=== PATIENT | male | born 1940 | race Caucasian/White ===

== ENCOUNTER 2017-02-09 18:09 | Inpatient (IN) | payer MEDICARE, BC ==
[~2017-02-09] VITALS: Ht 175.3 cm; Wt 102.1 kg
[~2017-02-09 18:09] MED LIST: CARDIZEM120 MG PO; DILTIAZEM ER360 M1 PO; HYTRIN10 MG PO; METOPROLOL TART50 MG ORAL; PRADAXA150 MG ORAL
[2017-02-09 18:25] VITALS: BP 140/73
--- NOTE | 2017-02-09 18:41 | Emergency Room Report ---
History of Present Illness General Chief Complaint: Chest Pain Source: Patient, Medical Record Present Illness HPI Patient presents with complaints of chest pain Last night he felt some mild palpitation sensation that resolved however about an hour prior to arrival she had a sensation of pain and heaviness left lower mid chest area 5 out of 10 pain heaviness Was concerned and came to the emergency room denies any chest pain currently Denies any headache or neck pain Denies any abdominal pain denies any vomiting or diarrhea Denies any change with position or exertion Patient has history of chronic A. fib questionable previous thrombus Allergies: Coded Allergies: No Known Allergies (Verified , 10/13/06) Patient History Past Medical History: see triage record Pertinent Family History: none Reviewed Nursing Documentation: PMH: Agreed, PSxH: Agreed Nursing Documentation-PMH Past Medical History: No History, Except For Hx Cardiac Problems: Yes - A-fib Hx Hypertension: Yes Hx Pacemaker: No - GOUT Hx Asthma: No Hx COPD: No Hx Diabetes: Yes - type 2 Hx Cancer: No Hx Gastrointestinal Problems: No Hx Dialysis: No Hx Neurological Problems: No - Sleep Apnea Hx Cerebrovascular Accident: No Hx Seizures: No Review of Systems All Other Systems: negative except mentioned in HPI Physical Exam Vital Signs Date Time Temp Pulse Resp B/P Pulse Ox O2 Delivery O2 Flow Rate FiO2 02/09/ 18:18 98.1 80 16 140/73 98 Room Air Sp02 EP Interpretation: reviewed, normal General Appearance: well appearing, no apparent distress Head: normocephalic, atraumatic Eyes: bilateral eye EOMI, bilateral eye PERRL ENT: hearing grossly normal, normal pharynx, TMs + canals normal, uvula midline Neck: full range of motion, supple, no meningismus, no bony tend Respiratory: lungs clear, normal breath sounds, no rhonchi, no respiratory distress, no retraction, no accessory muscle use Cardiovascular #1: no edema, no gallop, no JVD, no murmur, irregularly irregular Gastrointestinal: normal bowel sounds, non tender, soft, no mass, no organomegaly, non-distended, no guarding, no hernia, no pulsatile mass, no rebound Genitourinary: no CVA tenderness Musculoskeletal: other - Patient has evidence of trigger finger on the right hand with previous surgery Neurologic: oriented x3, responsive, sensory intact, other Psychiatric: mood/affect normal Skin: normal color, no rash, warm/dry, palpation normal Lymphatic: normal inspection, no adenopathy Medical Decision Making Diagnostic Impression: Primary Impression: ACS (acute coronary syndrome) ER Course Patient is a fairly complex patient with multiple differential to consideration including but not limited to cardiac cardiopulmonary and vascular emergencies Patient for set of enzymes are negative at this time patient remains pain-free in consultation with the patient's sailing officer he will be observed for further rule out ACS pathology And placed into observation Labs Test 02/09/17 18:40 White Blood Count 8.0 K/UL (4.8-10.8) Red Blood Count 4.90 M/UL (4.70-6.10) Hemoglobin 15.4 G/DL (14.2-18.0) Hematocrit 43.5 % (42.0-52.0) Mean Corpuscular Volume 89 FL (80-99) Mean Corpuscular Hemoglobin 31.5 PG (27.0-31.0) Mean Corpuscular Hemoglobin Concent 35.4 G/DL (32.0-36.0) Red Cell Distribution Width 12.5 % (11.6-14.8) Platelet Count 156 K/UL (150-450) Mean Platelet Volume 9.1 FL (6.5-10.1) Neutrophils (%) (Auto) 59.0 % (45.0-75.0) Lymphocytes (%) (Auto) 30.8 % (20.0-45.0) Monocytes (%) (Auto) 6.3 % (1.0-10.0) Eosinophils (%) (Auto) 3.1 % (0.0-3.0) Basophils (%) (Auto) 0.8 % (0.0-2.0) Prothrombin Time 11.2 SEC (9.30-11.50) Prothromb Time International Ratio 1.1 (0.9-1.1) Activated Partial Thromboplast Time 35 SEC (23-33) Sodium Level 140 mEQ/L (135-145) Potassium Level 3.6 mEQ/L (3.4-4.9) Chloride Level 98 mEQ/L (98-107) Carbon Dioxide Level 25 mEQ/L (20-30) Anion Gap 17 (5-15) Blood Urea Nitrogen 23 mg/dL (7-23) Creatinine 1.1 mg/dL (0.7-1.2) Estimat Glomerular Filtration Rate mL/min (>60) Glucose Level 189 mg/dL (74-106) Calcium Level 9.1 mg/dL (8.6-10.2) Total Bilirubin 0.6 mg/dL (0.0-1.2) Aspartate Amino Transf (AST/SGOT) 15 U/L (5-40) Alanine Aminotransferase (ALT/SGPT) 19 U/L (3-41) Alkaline Phosphatase 105 U/L (40-129) Total Creatine Kinase 78 U/L (38-174) Troponin I < 0.30 ng/mL (<=0.30) Total Protein 6.7 g/dL (6.6-8.7) Albumin 3.8 g/dL (3.5-5.2) Globulin 2.9 g/dL Albumin/Globulin Ratio 1.3 (1.0-2.7) Lipase 14 U/L (< 60) EKG Diagnostic Results Rate: normal Rhythm: other - irregularly irregular ST Segments: other - prolonged qrs Rhythm Strip Diag. Results EP Interpretation: yes Rate: 66 Rhythm: other - a fib Chest X-Ray Diagnostic Results EP Interpretation: Yes Findings: no consolidation, no effusion, no pneumothorax, other - cm Last Vital Signs Date Time Temp Pulse Resp B/P Pulse Ox O2 Delivery O2 Flow Rate FiO2 02/09/17 18:25 64 16 Room Air 02/09/17 18:25 140/73 98 02/09/17 18:18 98.1 Status: improved Disposition: PLACE IN OBSERVATION Condition: Serious PHOEBE SANDS D.O. Feb 09, 2017 18:41
[2017-02-09 18:51] LABS: BASOPHILS % (AUTO) 0.8 % (0.0-2.0); EOSINOPHILS % (AUTO) 3.1 % (0.0-3.0); LYMPHOCYTES % (AUTO) 30.8 % (20.0-45.0); MEAN CORPUSCULAR HEMOGLOBIN 31.5 PG (27.0-31.0); MEAN CORPUSCULAR HGB CONC 35.4 G/DL (32.0-36.0); MEAN CORPUSCULAR VOLUME 89 FL (80-99); MEAN PLATELET VOLUME 9.1 FL (6.5-10.1); MONOCYTES % (AUTO) 6.3 % (1.0-10.0); PLATELET COUNT 156 K/UL (150-450); RED CELL DISTRIBUTION WIDTH 12.5 % (11.6-14.8)
[2017-02-09 19:07] LABS: INR 1.1 (0.9-1.1); PROTHROMBIN TIME 11.2 SEC (9.30-11.50)
[2017-02-09 19:12] LABS: ALANINE AMINOTRANSFERASE 19 U/L (3-41); ALBUMIN/GLOBULIN RATIO 1.3 (1.0-2.7); ANION GAP 17 (5-15); ASPARTATE AMINO TRANSFERASE 15 U/L (5-40); CALCIUM 9.1 mg/dL (8.6-10.2); CARBON DIOXIDE 25 mEQ/L (20-30); CHLORIDE 98 mEQ/L (98-107); CREATININE 1.1 mg/dL (0.7-1.2); HEMOLYSIS 9; LIPASE 14 U/L (< 60); POTASSIUM 3.6 mEQ/L (3.4-4.9); SODIUM 140 mEQ/L (135-145); TOTAL PROTEIN 6.7 g/dL (6.6-8.7)
[2017-02-09 19:19] LABS: TROPONIN I < 0.30 ng/mL (<=0.30)
[2017-02-09 19:43] LABS: CKMB 1.7 ng/mL (< 6.7)
[2017-02-09 20:24] VITALS: BP 118/68
[2017-02-09] MEDS ORDERED: Zolpidem 5mg tab ORAL PRN (22:30)
[2017-02-09] MEDS ORDERED: Nitroglycerin Subl 0.4mg tab (Bottle Of 25) SL PRN (22:30)
[2017-02-09 23:27] VITALS: BP 151/86
[2017-02-10 04:04] VITALS: BP 127/85
[2017-02-10 04:49] LABS: TROPONIN I < 0.30 ng/mL (<=0.30)
[2017-02-10 07:46] VITALS: BP 137/92
--- NOTE | 2017-02-10 08:27 | General Progress Note ---
Progress Note Progress Note [id number] full note dictated WILMAR WALLIS Feb 10, 2017 08:27
[2017-02-10 08:46] VITALS: BP 137/92
[2017-02-10] MEDS ORDERED: Metoprolol 50mg tab ORAL SCH (09:00)
[2017-02-10] MEDS ORDERED: Dabigatran 150mg cap ORAL SCH (09:00)
[2017-02-10] MEDS ORDERED: Diltiazem CD 180mg cap ORAL SCH (09:00)
[2017-02-10] MEDS ORDERED: Docusate 100mg tablet ORAL SCH (09:00)
--- NOTE | 2017-02-10 09:22 | Cardiology Progress Note ---
Assessment/Plan Assessment/Plan The patient is seen and examined, full consult note will be dictated shortly. Objective Last 24 Hour Vital Signs Date Time Temp Pulse Resp B/P Pulse Ox O2 Delivery O2 Flow Rate FiO2 02/10/17 08:46 77 137/92 02/10/17 08:46 77 137/92 02/10/17 08:00 67 02/10/17 07:46 97.5 77 20 137/92 95 Room Air 02/10/17 04:34 54 02/10/17 04:04 97.7 60 20 127/85 96 02/10/17 00:00 50 02/09/17 23:27 97.3 57 20 151/86 96 Room Air 02/09/17 21:14 98.1 58 17 118/68 98 Room Air 02/09/17 20:24 58 17 118/68 98 Room Air 02/09/17 18:25 64 16 Room Air 02/09/17 18:25 16 140/73 98 Room Air 02/09/17 18:18 98.1 80 16 140/73 98 Room Air Intake and Output 02/09/17 02/10/17 19:00 07:00 Intake Total 0 ml 120 ml Balance 0 ml 120 ml Intake Oral 0 ml 120 ml # Voids 3 Laboratory Tests Test 02/09/17 18:40 02/10/17 04:00 White Blood Count 8.0 K/UL (4.8-10.8) Red Blood Count 4.90 M/UL (4.70-6.10) Hemoglobin 15.4 G/DL (14.2-18.0) Hematocrit 43.5 % (42.0-52.0) Mean Corpuscular Volume 89 FL (80-99) Mean Corpuscular Hemoglobin 31.5 PG (27.0-31.0) H Mean Corpuscular Hemoglobin Concent 35.4 G/DL (32.0-36.0) Red Cell Distribution Width 12.5 % (11.6-14.8) Platelet Count 156 K/UL (150-450) Mean Platelet Volume 9.1 FL (6.5-10.1) Neutrophils (%) (Auto) 59.0 % (45.0-75.0) Lymphocytes (%) (Auto) 30.8 % (20.0-45.0) Monocytes (%) (Auto) 6.3 % (1.0-10.0) Eosinophils (%) (Auto) 3.1 % (0.0-3.0) H Basophils (%) (Auto) 0.8 % (0.0-2.0) Prothrombin Time 11.2 SEC (9.30-11.50) Prothromb Time International Ratio 1.1 (0.9-1.1) Activated Partial Thromboplast Time 35 SEC (23-33) H Sodium Level 140 mEQ/L (135-145) Potassium Level 3.6 mEQ/L (3.4-4.9) Chloride Level 98 mEQ/L (98-107) Carbon Dioxide Level 25 mEQ/L (20-30) Anion Gap 17 (5-15) H Blood Urea Nitrogen 23 mg/dL (7-23) Creatinine 1.1 mg/dL (0.7-1.2) Estimat Glomerular Filtration Rate mL/min (>60) Glucose Level 189 mg/dL (74-106) H Calcium Level 9.1 mg/dL (8.6-10.2) Total Bilirubin 0.6 mg/dL (0.0-1.2) Aspartate Amino Transf (AST/SGOT) 15 U/L (5-40) Alanine Aminotransferase (ALT/SGPT) 19 U/L (3-41) Alkaline Phosphatase 105 U/L (40-129) Total Creatine Kinase 78 U/L (38-174) Creatine Kinase MB 1.7 ng/mL (< 6.7) Creatine Kinase MB Relative Index 2.1 Troponin I < 0.30 ng/mL (<=0.30) < 0.30 ng/mL (<=0.30) Pro-B-Type Natriuretic Peptide 545 pg/mL (0-125) H Total Protein 6.7 g/dL (6.6-8.7) Albumin 3.8 g/dL (3.5-5.2) Globulin 2.9 g/dL Albumin/Globulin Ratio 1.3 (1.0-2.7) Lipase 14 U/L (< 60) GERRY SAMUEL Feb 10, 2017 09:22
--- NOTE | 2017-02-10 09:41 | Discharge Instructions ---
Discharge Instructions Discharge Instructions Resume Normal Activity?: Yes For Congestive Heart Failure Reminder Report to your physician any weight gain of 5 pounds or more in one week. GERRY SAMUEL Feb 10, 2017 09:41
--- NOTE | 2017-02-10 11:09 | Diagnostic Imaging Report ---
Indication: Chest pain Technique: One view of the chest Comparison: 05/15/2015 Findings: Suboptimal inspiration. Heart is borderline enlarged. Lungs and pleural spaces are clear. Impression: Borderline cardiomegaly. No acute process This agrees with the preliminary interpretation provided by the emergency room physician
--- NOTE | 2017-02-10 13:39 | Cardiology Report ---
APPROVED REPORT EKG Measurement Heart [id number] Atrial fibrillation with slow ventricular response Septal infarct, age undetermined Abnormal ECG
--- NOTE | 2017-02-10 13:43 | Cardiology Report ---
APPROVED REPORT EKG Measurement Heart [id number] Atrial fibrillation Septal infarct, age undetermined Abnormal ECG
--- NOTE | 2017-02-10 20:38 | History and Physical Report ---
DATE OF ADMISSION: 02/09/2017 PRIMARY DOCTOR: Dr. Reji Marquez CHIEF COMPLAINT: Chest pain. HISTORY OF PRESENT ILLNESS: The patient is a pleasant 76-year-old male with past medical history significant for history of hypertension, dyslipidemia, morbid obesity, and history of atrial fibrillation, who presented to the emergency room complaining of chest pain. Apparently, his problem started yesterday afternoon prior to emergency room visit, he experienced chest pain around 5 o'clock in the afternoon. This chest pain was a heaviness in the left side of his chest, was nonradiating, was not associated with nausea, vomiting, or palpitation. There was no relieving or aggravating factor. The patient came to the emergency room for checkup. He had three cardiac enzymes, which were negative. The patient also found to have a mild elevation in his glucose and being in AFib. The patient consequently was admitted in the hospital. I was called for admission. PAST MEDICAL HISTORY: 1. History of hypertension. 2. History of AFib. 3. History of diabetes. 4. History of dyslipidemia. 5. History of sleep apnea. 6. History of morbid obesity. HOME MEDICATIONS: 1. Pradaxa 150 mg p.o. daily. 2. Diltiazem 360 mg p.o. daily. 3. Metoprolol 50 mg p.o. daily. 4. Prazosin 10 mg nightly. SOCIAL HISTORY: Denies any history of current tobacco, alcohol, or drug use. FAMILY HISTORY: Negative for any history of premature heart disease. REVIEW OF SYSTEMS: General: He denies any weight loss, weight gain, fever, chills, and night sweats. . Head And Neck: Denies any dysphagia, odynophagia, blurry vision, and neck stiffness. Pulmonary: Denies any shortness of breath, cough or sputum. Cardiovascular: As mentioned in history of present illness. Gastrointestinal: Denies any nausea, vomiting, diarrhea, hematemesis, or hematochezia. Genitourinary: Denies any dysuria, frequency, or hematuria. Musculoskeletal: He denies any weakness or numbness. PHYSICAL EXAMINATION: VITAL SIGNS: The patient had temperature of 98.0 degrees, blood pressure of 118/68, pulse rate of 58, and respiratory rate of 18. HEAD AND NECK: No JVP. No LAD. No thyromegaly. Extraocular movement intact. Pupils are reactive to light and accommodation. LUNGS: Clear to auscultation. CARDIAC: Regular rate. S1 and S2. No murmur. No rub. ABDOMEN: Soft, nontender, and nondistended. EXTREMITIES: No edema. No clubbing. No cyanosis. LABORATORY AND DIAGNOSTIC DATA: The patient sodium 140, potassium 3.6, chloride 98, bicarbonate 25, BUN of 26, creatinine of 1.1, glucose of 189, and calcium of 9.1. AST of 15 and ALT of 19, and alkaline phosphatase of 105. Total protein of 6.7 and albumin of 3.8. CBC with WBC count of 8, hemoglobin of 15.4, hematocrit of 43, and platelet count 156,000. EKG revealed AFib. Chest x-ray, no cardiopulmonary disease. ASSESSMENT: 1. Acute coronary syndrome. 2. Hypertension. 3. Diabetes. 4. Morbid obesity. 5. Sleep apnea. PLAN: Plan for the patient to obtain a Cardiology consultation. Obtain EKG, obtain an echo, and serial cardiac enzyme. Lorelei Amaro M.D. DR: Melany JOB#: [id number] CC:
--- NOTE | 2017-02-10 23:00 | Cardiology Report ---
APPROVED REPORT EXAM: Two-dimensional and M-mode echocardiogram with Doppler and color Doppler. Technically difficult study due to poor acoustical windows. Normal left ventricular chamber size, mildly depressed systolic function and wall motion to extent visualized. Left ventricular ejection fraction estimated to be 50-55 %. Study quality precludes accurate assessment of regional wall motion. Moderate left ventricular hypertrophy. Anterior Echo-free space, may be due to pericardial fat or effusion. Moderate left atrial enlargement. Mild right atrial enlargement. Right ventricular chamber size is within normal limits. Focal aortic valve sclerosis with adequate cusp excursion. Thickened mitral valve leaflets with normal excursion. Mitral annulus and aortic root calcification. Pulmonic valve not well visualized. Normal tricuspid valve structure. IVC dilated at 2.2 cm with slight physiologic collapse suggestive of increased RA pressure. A color flow and spectral Doppler study was performed and revealed: No aortic regurgitation. Moderate mitral regurgitation. Can not determine left ventricular diastolic function by mitral diastolic velocities due to atrial fibrillation. Mild tricuspid regurgitation. Tricuspid systolic velocities suggests peak right ventricular systolic pressure of 25 mmHg. Pulmonic regurgitation present.
--- NOTE | 2017-02-11 00:28 | Consultation ---
DATE OF CONSULTATION: 02/10/2017 CARDIOLOGY CONSULTATION CONSULTING PHYSICIAN: Reji Marquez M.D. ADMITTING PHYSICIAN: Lorelei Amaro M.D. CHIEF COMPLAINT: 1. Atrial fibrillation. 2. Chest pain. HISTORY OF PRESENT ILLNESS: The patient is a very pleasant 76-year-old gentleman, known to my office, who presents to the hospital with complaints of short run of heart flutter occurred during the sleep last night as well as chest discomfort described as heaviness over the left precordial area, the intensity of 5/10 and nonradiating. The patient was concerned and presents to the emergency department for further evaluation and management. His cardiac history is significant for history of permanent atrial fibrillation for which he is rate controlled with metoprolol and diltiazem, also history of hypertrophic obstructive cardiomyopathy in the past controlled with combination of metoprolol and diltiazem. The latest 2D echocardiography did not reveal any LVOT obstruction. He had a recent CT angiography of the coronary at [facility] prior to noncardiac surgery, which showed nonobstructive lesions. PAST MEDICAL HISTORY: 1. Borderline diabetes mellitus, diet controlled. 2. History of hypertrophic obstructive cardiomyopathy. 3. History of hypertension. 4. History of gout. 5. History of obesity. 6. History of permanent atrial fibrillation with normal left ventricular systolic function. 7. History of renal calculi. PAST SURGICAL HISTORY: A history of urological procedure in regards with renal calculi. MEDICATIONS: 1. Diltiazem 360 mg p.o. daily. 2. Dabigatran 150 mg p.o. twice daily. 3. Metoprolol 50 mg p.o. daily. 4. Furazosin 10 mg p.o. nightly. ALLERGIES: No known drug allergies. REVIEW OF SYSTEMS: HEENT: Denies any headache, diplopia, or blurred vision. Constitutional: Denies any fever, chills, night sweats, or weight loss. Cardiovascular: He had chest pain and palpitations as mentioned above. Denies any PND, orthopnea, leg swelling, or syncope. Pulmonary: Denies any cough, hemoptysis, or wheezing. Gastrointestinal: Denies any nausea, vomiting, diarrhea, constipation, abdominal pain, or GI bleed. Genitourinary: History of renal calculi. Denies any dysuria, hematuria, or incontinence. Neurology: Denies any motor dysfunction, sensory deficit, or altered speech. There is no prior history of stroke. PHYSICAL EXAMINATION: VITAL SIGNS: Blood pressure at the time of arrival to the hospital was 140/73, pulse of 88, respirations 16, and O2 saturation 98% on room air. GENERAL: The patient is a very pleasant 76-year-old gentleman, in no apparent respiratory distress. HEENT: Atraumatic and normocephalic. Anicteric. Pupils are equal, round, and reactive to light and accommodation. Extraocular muscles intact. NECK: JVP is less than 5 cm. No carotid bruits. Carotid upstrokes 2+ bilaterally. CVS: Normal S1 and S2. Irregularly irregular rhythm. No murmurs, gallops, or rubs. PMI is at fourth intercostal space at the midclavicular line. LUNGS: Clear to auscultation bilaterally. ABDOMEN: Soft, nontender, and nondistended. No hepatosplenomegaly. Positive bowel sounds. EXTREMITIES: No evidence of edema, clubbing, or cyanosis. LABORATORY AND DIAGNOSTIC DATA: A chest x-ray showed no acute cardiopulmonary disease. Laboratory findings, WBC 8.0, hemoglobin of 15.4, hematocrit 43.5, and platelet count 156,000. Sodium 140, potassium 3.6, chloride 98, bicarbonate is 25, BUN of 23, creatinine 1.1, glucose 189, and calcium is 9.1. Troponin I is less than 0.3. ProBNP was 545. INR is 1.1. A 12-lead electrocardiogram shows atrial fibrillation with slow ventricular response, 52. No acute ST and T-wave abnormalities. ASSESSMENT AND PLAN: The patient is a very pleasant 76-year-old gentleman seen in Cardiology consultation. 1. Permanent atrial fibrillation with controlled ventricular response on 2 AV eneida agents including diltiazem and metoprolol. We will continue both the above medications. The patient's recent episode of palpitation needs to be worked up as an outpatient including placement of Zio patch for 2 to 3 weeks to identify possible atrial arrhythmia beside atrial fibrillation and old ventricular tachyarrhythmias. 2. We will continue with current novel anticoagulation therapy with Dabigatran 150 mg twice daily. 3. Chest pain atypical, a recent CT angiography of coronary showed nonobstructive coronary artery disease. We will continue monitoring the patient. If the chest pain is recurrent, we may opt to proceed with a nuclear stress imaging study. 4. History of gout. 5. Borderline diabetes mellitus, nonfasting blood sugar was elevated. The patient was discussed the option of using metformin. We would like to obtain hemoglobin A1c again and it seems to me that the diet has failed controlling his hyperglycemia. 6. History of renal calculi. 7. History of hypertrophic obstructive cardiomyopathy, which was resolved with combination of metoprolol and diltiazem together, but the last 2D echocardiography did not show any evidence of left ventricular outflow tract obstruction. 8. I have ordered 2D echocardiography to be done prior to discharge. 9. We will follow the patient in an outpatient setting. I would like to thank, Dr. Amaro, for allowing me to participate in the care of this patient. Reji Marquez M.D. DR: Abebe JOB#: [id number] CC:
--- NOTE | 2017-02-11 09:39 | Discharge Summary ---
Discharge Summary Hospital Course Date of Admission Feb 09, 2017 at 19:06 Date of Discharge Feb 10, 2017 at 11:10 Admitting Diagnosis acute coronary syndrome HPI Gaetano Michael is a 76 year old male who was admitted on Feb 09, 2017 at 19: 06 for Acute Coronary Syndrome Hospital Course dc summary #[id number] Discharge Medications Continued Medications: Dabigatran Etexilate Mesylate* (Pradaxa*) 150 Mg Capsule 150 MG ORAL BID, CAP Diltiazem HCl (Diltiazem ER) 360 Mg Tab.er.24h 360 MG PO DA, TAB Metoprolol Tartrate* (Metoprolol Tartrate*) 50 Mg Tablet 50 MG ORAL DA, TAB 0 Refills Terazosin HCl (Terazosin HCl) 10 Mg Cap 10 MG PO QHS, #7 CAP 0 Refills Discharge Condition Upon Discharge: stable Discharge Disposition Patient was discharged to Home (01) Discharge Diagnoses: Discharge Instructions Discharge Instructions Special Instructions I have been assigned to complete a D/C Summary on this account. I was not involved in the patient management Nicolle Ceballos NP (Vanchtein) Feb 11, 2017 09:39
--- NOTE | 2017-02-12 03:08 | Discharge Summary 2 SIG ---
DATE OF ADMISSION: 02/09/2017 DATE OF DISCHARGE: 02/10/2017 REASON FOR ADMISSION: A 76-year-old male, came to emergency room complaining of the chest pain. At night, he felt mild palpitation sensation, which resolved. However, prior to arrival, he also had sensation of pain in the left lower midchest area. The patient follows as an outpatient with the crew boat operator. The patient came for evaluation. Pain described as nonradiating with intensity 5/10 in the left precordial area. Cardiac history significant for permanent atrial fibrillation with controlled rate, history of hypertrophic cardiomyopathy in the past, controlled with a combination of metoprolol and Cardizem. The latest 2D echo did not reveal any obstructive hypertrophic cardiomyopathy. The patient also had recent CT coronary angiogram at [facility] prior to non-cardiac surgery, which revealed nonobstructive lesion. The first troponin was negative. EKG shoed atrial fibrillation with a slow ventricular rate of 55. The patient admitted for further management to telemetry floor. ADMITTING DIAGNOSES: 1. Chest pain, rule out acute coronary syndrome. 2. Permanent atrial fibrillation with a controlled ventricular rate. 3. Hypertension. 4. Diabetes. 5. Morbid obesity. HOSPITAL COURSE: The patient was admitted to telemetry floor. Cardiology consult requested. Serial troponin were negative. Echocardiogram revealed ejection fraction of 50% to 55%, right ventricular systolic pressure of 25, moderate left ventricular hypertrophy, and moderate mitral regurgitation. The patient was in atrial fibrillation, which appeared to be chronic. Rate controlled with beta-marilee and calcium channel marilee i.e., metoprolol and Cardizem . Anticoagulation with Pradaxa 150 mg b.i.d. No evidence of bleeding. According to crew boat operator, who had seen and evaluated the patient and followed with this patient as outpatient, chest pain appeared to be atypical since recent CT coronary angiogram revealed nonobstructive coronary artery disease. The patient will follow up with the crew boat operator as an outpatient. If chest pain recurs, he will recommend nuclear stress test. For the atrial fibrillation, he recommended to continue Cardizem and metoprolol for rate control as well as anticoagulation. He also recommended as an outpatient to work up the patient for further possible arrhythmia and place ZIO Patch for two to three weeks to identify possible atrial arrhythmia beside atrial fibrillation and ventricular tachyarrhythmia. The patient with borderline diabetes mellitus, elevated nonfasting blood sugar. Recommended workup as an outpatient with hemoglobin A1c and initiation of therapy with metformin, Apparently diet failed to control patient's hyperglycemia. The patient needs to be started on metformin as an outpatient. Blood pressure was controlled with current antihypertensive regimen. The patient was stable for discharge home. Follow up with crew boat operator. Due to the rapid and unexpected improvement in patient's condition, the patient was discharged in one day. Chest pain resolved. No recurrence of chest pain. No shortness of breath. No palpitations. No dizziness. No evidence of arrhythmia except atrial fibrillation with controlled rate on telemetry. DISCHARGE DIAGNOSES: Include: 1. Atypical chest pain. 2. Permanent atrial fibrillation with controlled ventricular response. 3. Hypertension. 4. Borderline diabetes. 5. History of gout. 6. Obstructive sleep apnea. 7. Morbid obesity. DISCHARGE MEDICATIONS: See medication reconciliation list. DISCHARGE INSTRUCTIONS: Follow up as an outpatient with the crew boat operator for placement of the ZIO patch to identify possible other atrial arrhythmia or tachyarrhythmia. If chest pain recurs, patient will need a nuclear stress test as per crew boat operator. Recommend hemoglobin A1c check and start the patient on metformin by the PMD. Reji Marquez M.D. I have been assigned to dictate discharge summary on this account and I was not involved in the patient's management. Nicolle Pinzonjohn) N.PNick DR: CHENTE JOB#: [id number] CC: RADHA
== END 2017-02-10 11:10 | disposition home or self-care (01) | DRG 313 ==
LOC: EMR 18:38 → EDBEDREQ 18:45 → 2E 19:06 → EDBEDREQ 19:14
DX: R07.89 Other chest pain (principal); I42.1 Obstructive hypertrophic cardiomyopathy; I48.2 Chronic atrial fibrillation; I10 Essential (primary) hypertension; R73.03 Prediabetes; M10.9 Gout, unspecified; G47.33 Obstructive sleep apnea (adult) (pediatric); E66.01 Morbid (severe) obesity due to excess calories
CPT/HCPCS: 36415; 71010; 80053; 82550; 82553; 83690; 83880; 84484; 85025; 85610; 85730; 93005; 93306

== ENCOUNTER 2017-03-18 23:53 | Emergency (ER) | payer BC, MEDICARE ==
[~2017-03-18] VITALS: Ht 175.3 cm; Wt 101.2 kg
[2017-03-19] VITALS: BP 152/94
[2017-03-19 01:06] LABS: BASOPHILS % (AUTO) 0.9 % (0.0-2.0); EOSINOPHILS % (AUTO) 1.8 % (0.0-3.0); MEAN CORPUSCULAR HEMOGLOBIN 30.4 PG (27.0-31.0); MEAN CORPUSCULAR HGB CONC 34.6 G/DL (32.0-36.0); MEAN CORPUSCULAR VOLUME 88 FL (80-99); MONOCYTES % (AUTO) 8.3 % (1.0-10.0); PLATELET COUNT 181 K/UL (150-450); RED BLOOD COUNT 5.05 M/UL (4.70-6.10); RED CELL DISTRIBUTION WIDTH 12.3 % (11.6-14.8); WHITE BLOOD COUNT 9.5 K/UL (4.8-10.8)
[2017-03-19 01:15] LABS: INR 1.3 (0.9-1.1); PROTHROMBIN TIME 13.3 SEC (9.30-11.50)
[2017-03-19 01:23] LABS: ALANINE AMINOTRANSFERASE 20 U/L (3-41); ALBUMIN/GLOBULIN RATIO 1.2 (1.0-2.7); ANION GAP 17 (5-15); ASPARTATE AMINO TRANSFERASE 16 U/L (5-40); CALCIUM 9.1 mg/dL (8.6-10.2); CARBON DIOXIDE 23 mEQ/L (20-30); CHLORIDE 102 mEQ/L (98-107); CREATININE 0.8 mg/dL (0.7-1.2); HEMOLYSIS 3; POTASSIUM 3.6 mEQ/L (3.4-4.9); SODIUM 142 mEQ/L (135-145)
[2017-03-19 01:28] LABS: TROPONIN I < 0.30 ng/mL (<=0.30)
--- NOTE | 2017-03-19 01:30 | Emergency Room Report ---
History of Present Illness General Chief Complaint: Chest Pain Source: Patient Present Illness HPI Is a 76-year-old gentleman with a history of chronic atrial fibrillation, rate control with Cardizem and metoprolol. Also taken to an accident. He presents with chief complaint of chest pain. Onset for last couple days. On and off. He has pain lasting for a few seconds. No shortness of breath. No diaphoresis. No exertional component. He has similar symptom in the past. He was admitted here last month for the same and was negative enzymes. He had a recent CT angiogram done at [facility] about a year and a half ago and was remarkable. 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 Hx Asthma: No Hx Diabetes: Yes Hx Cancer: No Hx Dialysis: No Hx Neurological Problems: No Hx Cerebrovascular Accident: No Hx Seizures: No Review of Systems Eye: Denies: blurred vision, eye pain ENT: Denies: ear pain, nose congestion, throat swelling Respiratory: Denies: cough, shortness of breath Cardiovascular: Reports: chest pain, Denies: palpitations Gastrointestinal: Denies: abdominal pain, diarrhea, nausea, vomiting Musculoskeletal: Denies: back pain, joint pain Skin: Denies: rash Neurological: Denies: headache, numbness Endocrine: Denies: increased thirst, increased urine Hematologic/Lymphatic: Denies: easy bruising All Other Systems: negative except mentioned in HPI Physical Exam Vital Signs Date Time Temp Pulse Resp B/P Pulse Ox O2 Delivery O2 Flow Rate FiO2 03/18/17 23:58 98.2 81 18 152/94 98 Room Air vitals with hypertension Sp02 EP Interpretation: reviewed, normal General Appearance: well appearing, no apparent distress, alert Head: normocephalic, atraumatic Eyes: bilateral eye EOMI, bilateral eye PERRL ENT: hearing grossly normal, normal pharynx Neck: full range of motion, supple, no meningismus Respiratory: chest non-tender, lungs clear, normal breath sounds Cardiovascular #1: no murmur, irregularly irregular Gastrointestinal: normal bowel sounds, non tender, no mass, no organomegaly, no bruit, non-distended Musculoskeletal: back normal, gait/station normal, normal range of motion Psychiatric: mood/affect normal Skin: warm/dry Medical Decision Making Diagnostic Impression: Primary Impression: Chest pain Qualified Codes: R07.9 - Chest pain, unspecified Additional Impressions: Hypertension Qualified Codes: I10 - Essential (primary) hypertension Atrial fibrillation, controlled ER Course Patient with atypical chest pain. He is already anticoagulated. Troponin is negative. I discussed the case with Dr. Pa who knows patient well. Agree with treatment plan. He has an appointment later this afternoon. Will most likely be placed on an event monitor. Patient expressed understanding. I see no evidence of ACS, PE, dissection to name a few. Lab Results Impression labs unremarkable. EKG Diagnostic Results Rate: normal Rhythm: other - afib ST Segments: no acute changes Rhythm Strip Diag. Results EP Interpretation: yes Rate: 70 Rhythm: no PVC's, no ectopy, other - afib Chest X-Ray Diagnostic Results EP Interpretation: Yes Findings: no consolidation, no effusion, no pneumothorax, no acute cardiopulmonary disease Number of Views: 1 Last Vital Signs Date Time Temp Pulse Resp B/P Pulse Ox O2 Delivery O2 Flow Rate FiO2 03/19/17 00:00 98.2 78 18 152/94 98 Room Air Status: improved Disposition: HOME, SELF-CARE Condition: Stable Patient Instructions: Nonspecific Chest Pain Additional Instructions: Keep the appointment with Dr. Marquez later on today. Return if worse. JAMEL ACHARYA M.D. March 19, 2017 01:30
[2017-03-19 01:50] VITALS: BP 144/89
[2017-03-19 03:16] LABS: CKMB 1.7 ng/mL (< 6.7)
--- NOTE | 2017-03-19 10:46 | Diagnostic Imaging Report ---
Indication: Chest Pain Comparison: 02/09/17 A single view chest radiograph was obtained. Findings: No definite infiltrate or pulmonary vascular congestion identified. The heart is enlarged. The aorta is mildly enlarged consistent with atherosclerotic vascular disease. The bones are osteopenic. Impression: No acute disease
== END 2017-03-19 01:50 | disposition home or self-care (01) ==
LOC: EMR 03-19 01:27
DX: R07.89 Other chest pain (principal); I10 Essential (primary) hypertension; I48.91 Unspecified atrial fibrillation; M10.9 Gout, unspecified; Z79.899 Other long term (current) drug therapy
CPT/HCPCS: 36415; 71010; 80053; 82550; 82553; 84484; 85025; 85610; 85730; 93005; 99283